=== PATIENT | female | born 1955 | race Caucasian/White ===

== ENCOUNTER 2017-11-11 21:14 | Emergency (ER) | payer BC, OTHER ==
[~2017-11-11] VITALS: Ht 165.1 cm; Wt 73.5 kg
[2017-11-11 21:15] VITALS: BP_SYST 122
[2017-11-11] MEDS ORDERED: LORATADINE 10 MG TABLET PO ONE (23:45)
[2017-11-11] MEDS ORDERED: PREDNISONE 20 MG TABLET PO ONE (23:45)
--- NOTE | 2017-11-12 00:30 | NUR ---
Pt in waiting room with c/o facial swelling s/p using hair dye. Dr Bermudez aware.
--- NOTE | 2017-11-12 00:50 | NUR ---
Brought pt back into ER hallway so that Dr. Bermudez can evaluate pt, will return to waiting room after he is done with evaluation
--- NOTE | 2017-11-12 00:52 | NUR ---
ER Dr.MATHEWS MARSHALL examining patient.
--- NOTE | 2017-11-12 01:00 | NUR ---
Patient given written and verbal discharge instructions and verbalizes understanding. ER MD discussed with patient the results and treatment provided. Patient in stable condition. ID arm band removed. Rx of medrol given. Patient educated on pain management and to follow up with PMD. Pain Scale 0/10. Opportunity for questions provided and answered.
[2017-11-12 01:30] VITALS: BP_SYST 123
== END 2017-11-12 01:00 | disposition home or self-care (01) ==
LOC: SED 21:14
DX: L25.9 Unspecified contact dermatitis, unspecified cause (principal)
CPT/HCPCS: 99283; J7512

== ENCOUNTER 2021-03-21 09:46 | Emergency (ER) | payer BC, OTHER ==
[~2021-03-21] VITALS: Ht 162.6 cm; Wt 78.9 kg
[2021-03-21 09:57] VITALS: BP_SYST 147
--- NOTE | 2021-03-21 09:57 | NUR ---
Patient to ER bed 5 to gown for evaluation. Side rails up.
--- NOTE | 2021-03-21 10:09 | NUR ---
Patient came from home for evaluation of abnormal labs from urgent care. Patient states she has been feeling weak, dizzy, and achy for 9 days. She reports that urgent care called her and reported that she had elevated HGB and HCT and it was the reason for her visit.
--- NOTE | 2021-03-21 10:27 | NUR ---
ER Dr. Kovacs at bedside examining patient.
[2021-03-21] MEDS ORDERED: NACL 0.9% 1,000 ML IV ONE (10:45)
[2021-03-21 10:51] LABS: BASOPHILS % (AUTO) 0.9 % (0.0-2.0); EOSINOPHILS # (AUTO) 0.1 K/uL (0.0-0.4); EOSINOPHILS % (AUTO) 2.2 % (0.0-4.0); HEMATOCRIT 44.1 % (36-48); HEMOGLOBIN 14.8 g/dL (12.0-16.0); LYMPHOCYTES # (AUTO) 1.2 K/uL (1.0-5.5); MEAN CORPUSCULAR HEMOGLOBIN 32 pg (27-31); MEAN CORPUSCULAR HGB CONC 34 % (32-36); MEAN CORPUSCULAR VOLUME 96 fL (79.0-98.0); MONOCYTES # (AUTO) 0.3 K/uL (0.0-1.0); MONOCYTES % (AUTO) 8.3 % (1.7-9.3); NEUTROPHILS # (AUTO) 2.1 K/uL (1.8-7.7); NEUTROPHILS % (AUTO) 55.6 % (40.0-70.0); PLATELET COUNT (AUTO) 157 K/uL (130-430); RED BLOOD CELL COUNT(AUTO) 4.59 MIL/uL (4.2-6.2); RED CELL DISTRIBUTION WIDTH 13.3 % (9.0-15.0); WHITE BLOOD COUNT (AUTO) 3.8 K/uL (4.8-10.8)
[2021-03-21 11:14] LABS: CALCIUM 8.2 mg/dL (8.4-11.0); CREATININE 0.84 mg/dL (0.55-1.30); POTASSIUM 3.9 mmol/L (3.5-5.1)
[2021-03-21 11:21] LABS: ALBUMIN 3.5 g/dL (3.4-4.8); THYROID STIMULATING HORMONE 2.83 uIu/mL (0.36-3.74); TOTAL BILIRUBIN 0.5 mg/dL (0.0-1.0)
[2021-03-21 12:15] VITALS: BP_SYST 138
== END 2021-03-21 12:15 | disposition home or self-care (01) ==
LOC: SED 09:46
DX: R42 Dizziness and giddiness (principal)
CPT/HCPCS: 36415; 80053; 82550; 84443; 84484; 85025; 93005; 96360; 99284; J7030

== ENCOUNTER 2024-07-31 13:26 | Emergency (ER) | payer BC, OTHER ==
[~2024-07-31] VITALS: Ht 165.1 cm; Wt 77.6 kg
[2024-07-31 13:53] VITALS: BP_SYST 137; PULSE 68; RESP 18; TEMP 97.7; O2SAT 96
[2024-07-31] MEDS: NACL 0.9% 1,000 ML IV ONE ×2 (14:30→14:53)
[2024-07-31 15:10] LABS: PROTHROMBIN TIME 10.4 SECS (9.5-12.5)
[2024-07-31 15:23] LABS: BILIRUBIN,URINE NEGATIVE (NEGATIVE); BLOOD, URINE NEGATIVE (NEGATIVE); CLARITY/URINE CLEAR (CLEAR); COLOR,URINE YELLOW (YELLOW); GLUCOSE,URINE NEGATIVE (NEGATIVE); KETONES,URINE NEGATIVE (NEGATIVE); LEUKOCYTE ESTERASE ,URINE NEGATIVE (NEGATIVE); NITRITE, URINE POSITIVE (NEGATIVE); PROTEIN URINE NEGATIVE (NEGATIVE)
[2024-07-31 15:26] LABS: ALANINE AMINOTRANSFERASE 48 U/L (12-78); ALBUMIN 3.6 g/dL (3.4-4.8); ANION GAP 10 (5-15); ASPARTATE AMINOTRANSFERASE 29 U/L (10-37); BILIRUBIN,DIRECT 0.1 mg/dL (0.0-0.3); CALCIUM 8.9 mg/dL (8.4-11.0); CARBON DIOXIDE 24 mmol/L (23-29); CHLORIDE 109 mmol/L (98-107); CREATINE KINASE, TOTAL 79 U/L (26-192); CREATININE 0.67 mg/dL (0.55-1.30); FREE T4 (FREE THYROXINE) 1.2 ng/dl (0.8-1.5); GFR AFRICAN AMERICAN 113 mL/min (>90); GFR NON AFRICAN-AMERICAN 93 mL/min (>90); GLUCOSE 129 mg/dL (74-106); POTASSIUM 3.9 mmol/L (3.5-5.1); SODIUM SERUM 143 mmol/L (136-145); THYROID STIMULATING HORMONE 0.47 uIu/mL (0.36-3.74); TOTAL BILIRUBIN 0.6 mg/dL (0.0-1.0); TOTAL PROTEIN, SERUM 7.3 g/dL (6.4-8.3); UREA NITROGEN, BLOOD 18 mg/dL (8-21)
[2024-07-31 15:35] LABS: BASOPHILS % (AUTO) 0.2 % (0.0-2.0); EOSINOPHILS # (AUTO) 0.1 K/uL (0.0-0.4); EOSINOPHILS % (AUTO) 0.9 % (0.0-4.0); HEMATOCRIT 45.1 % (36-48); HEMOGLOBIN 15.4 g/dL (12.0-16.0); LYMPHOCYTES # (AUTO) 0.8 K/uL (1.0-5.5); LYMPHOCYTES % (AUTO) 11.9 % (20.5-51.5); MEAN CORPUSCULAR HEMOGLOBIN 32 pg (27-31); MEAN CORPUSCULAR HGB CONC 34 % (32-36); MEAN CORPUSCULAR VOLUME 94 fL (79.0-98.0); MONOCYTES # (AUTO) 0.4 K/uL (0.0-1.0); NEUTROPHILS # (AUTO) 5.8 K/uL (1.8-7.7); PLATELET COUNT (AUTO) 152 K/uL (130-430); RED BLOOD CELL COUNT(AUTO) 4.79 MIL/uL (4.2-6.2); RED CELL DISTRIBUTION WIDTH 13.4 % (9.0-15.0)
[2024-07-31 15:35] LABS: BACTERIA,URINE MODERATE /HPF (None Seen); MUCUS,URINE None Seen /LPF (None Seen); RBC,URINE NONE SEEN /HPF (0-3); WBC,URINE 0-3 /HPF (0-3)
[2024-07-31 15:45] LABS: ACETONE, SERUM NEGATIVE (NEGATIVE)
[2024-07-31] MEDS ORDERED: LEVO-62 PO (16:27)
[2024-07-31] MEDS ORDERED: cefTRIAXone 1 GM VIAL ONE (16:35)
[2024-07-31] MEDS: cefTRIAXone 1 GM in D5W 50 ML IV ONE (16:37)
[2024-07-31 16:57] VITALS: BP_SYST 124; PULSE 70; RESP 19; TEMP 97.7; O2SAT 97
== END 2024-07-31 16:54 | disposition home or self-care (01) ==
LOC: SED 13:26
DX: N39.0 Urinary tract infection, site not specified (principal); R42 Dizziness and giddiness; R11.0 Nausea; E03.9 Hypothyroidism, unspecified
CPT/HCPCS: 99285; 96365; 71045; 96361; 80076; 80048; 81001; 82009; 82550; 84439; 84443; 85025; 85610; 85730; 87086; 84484; 36415; 93005; 83605; J0696; J7030; 81000; 81015